=== PATIENT | male | born 1990 | race Caucasian/White ===

== ENCOUNTER 2019-08-04 13:49 | Emergency (ER) | payer OTHER, SELFPAY ==
--- NOTE | 2019-08-04 13:53 | ED_ITS ---
HPI - Abdominal Pain <Joyce Mcdaniels PA-C - Last Filed: 08/04/19 21:18> General Chief Complaint: Abdominal Pain Stated Complaint: abdominal pain Time Seen by Provider: 08/04/19 13:52 Source: patient Mode of arrival: Ambulatory Limitations: no limitations History of Present Illness HPI narrative: This is a 29-year-old well-appearing male with no pertinent medical history who presents with reported abdominal pain this morning and two similar episodes on the prior 2 mornings. He reports waking up around 5 or 6:00 a.m. 3 days ago with pain to his left flank that was achy and constant lasting about 30 minutes. When he is having the pain it radiates to the front left side of his abdomen as well. It is constant when it is occurring. He had the same thing again yesterday morning at the same time of day however it was slightly more intense. Yesterday it was associated with an urge to have a bowel movement and some cramping, however he tried and nothing happened. This morning it occurred again and he walked around without relief, attempted to use the restroom and then stretched and felt very nauseous. This morning's episode lasted for about an hour before his pain resolved. After the wave of the nausea passed he vomited clear emesis and went to sleep immediately afterwards as he felt better, but now presents to the emergency department with concern for this ongoing pain. He does say he has increased his physical activity recently including increasing yoga at home as well as increasing mountain biking, though he reports he does not remember doing anything specifically that might have strained this area of his body. He has been eating and drinking normally, he had a smoothie this morning for breakfast. He has had normal bowel movements 1- 2 times per day. No dysuria. His pain is currently a 0-1. During the episodes it goes u to a 5/10. He did not take anything to relieve the pain. He does not take any medications or supplements on a regular basis, he has no surgical history. He has never had pain like this before, and there is no personal or family history of kidney stones. MD complaint: abdominal pain and flank pain Onset (ago): day(s) (3) Pain Consistency: intermittent and now resolved Location: L flank Severity: mild Severity scale (1-10): 1 Quality: cramping, aching and dull Radiation: RUQ Migration to: no migration Relieving factors: vomiting Exacerbating factors: nothing Associated symptoms: nausea and vomiting Related Data Allergies Allergy/AdvReac Type Severity Reaction Status Date / Time No Known Drug Allergies Allergy Verified 08/04/19 15:03 Review of Systems <Joyce Mcdaniels PA-C - Last Filed: 08/04/19 21:18> Review of Systems ROS Unobtainable: All systems reviewed & are unremarkable except as noted in HPI and below Constitutional Constitutional: Reports as per HPI, Denies anorexia, Denies body ache(s), Denies fatigue, Denies poor appetite and Denies weakness ENT Ears, Nose, Mouth, and Throat: Denies dysphagia Cardiovascular Cardiovascular: Reports system reviewed and no additional complaints, except as docu Respiratory Respiratory: Reports system reviewed and no additional complaints, except as docu Gastrointestinal Gastrointestinal: Reports abdominal pain, Denies belching, Denies bloating, Denies change in bowel habits, Denies change in stool character, Denies constipation, Reports cramping, Denies dysphagia, Denies dyspepsia, Denies diarrhea, Denies loose stools, Reports nausea and Reports vomiting Genitourinary Genitourinary: Reports system reviewed and no additional complaints, except as docu and Reports as per HPI Musculoskeletal Musculoskeletal: Denies abnormal gait Neurologic Neurologic: Reports as per HPI, Denies abnormal gait and Denies weakness Psychiatric Psychiatric: Reports system reviewed and no additional complaints, except as docu Endocrine Endocrine: Denies fatigue Hematologic/Lymphatic Hematologic/Lymphatic: Reports system reviewed and no additional complaints, except as docu Allergic/Immunologic Allergic/Immunologic: Reports system reviewed and no additional complaints, except as docu Patient History <Joyce Mcdaniels PA-C - Last Filed: 08/04/19 21:18> Social History Smoking Status: Never smoker Exam <JELENA Shane Last Filed: 08/04/19 21:18> Initial Vital Signs Initial Vital Signs: Vital Signs Temperature 98.4 F 08/04/19 15:00 Pulse Rate 72 08/04/19 15:00 Respiratory Rate 16 08/04/19 15:00 Blood Pressure 140/82 08/04/19 15:00 Pulse Oximetry 98 08/04/19 15:00 Const General: cooperative, healthy appearing, comfortable, well developed and well groomed Nutritional Appearance: average body habitus Orientation: Orientation (x4) [facility] Head: normal to inspection, normocephalic and atraumatic Ears: hearing grossly normal bilaterally and external ears normal Nose: external nose normal Face and sinus: face symmetric Mouth: lip normal Teeth and gingiva: dentition normal Resp Effort & Inspection: normal respiratory effort, able to speak in complete sentences, no audible wheezes and no cough Auscultation: clear to auscultation bilaterally Cardio Rate: regular rate Rhythm: regular rhythm Heart Sounds: S1 normal and S2 normal Pulses: radial pulses present GI Inspection: normal to inspection, no abdominal wall ecchymosis, non-distended, no scars and no visible herniation Palpation: soft, No no hepatosplenomegaly, No firm, No guarding, No hernia and No mass Auscultation: normal bowel sounds Back/Spine/Pelvis Back: normal to inspection, No back tenderness, No CVA tenderness, No ecchymosis, No erythema, No sacral edema and No warmth Thoracic/Lumbar Spine: No thoracic and lumbar spine normal to inspection Other: Patient feels sensation of pressure is slightly different pressing on the left flank as compared to the right flank Skin General: no rashes or lesions noted, elasticity normal and turgor normal Lesions: no lesions Rashes: no rashes Trauma: no lacerations or abrasions Wounds: no wounds Hair: normal Nails: normal Other: multiple tattoos Neuro General: alert, awake, oriented x3, gait normal, moves all extremities and no focal motor deficits Speech: speech normal Gait: normal gait Sensory Exam: no sensory deficits noted Psych Appearance: grossly normal Mental Status: mental status grossly normal <Guerda Bullock DO - Last Filed: 08/05/19 07:14> Initial Vital Signs Initial Vital Signs: Vital Signs Temperature 98.4 F 08/04/19 15:00 Pulse Rate 72 08/04/19 15:00 Respiratory Rate 16 08/04/19 15:00 Blood Pressure 140/82 08/04/19 15:00 Pulse Oximetry 98 08/04/19 15:00 Course <Joyce Mcdaniels PA-C - Last Filed: 08/04/19 21:18> Orders Ordered: Discontinued Medications Ondansetron HCl (Zofran) 4 mg IV NOW ONE Stop: 08/04/19 14:10 Last Admin: 08/04/19 16:24 Dose: Not Given Documented by: BTONER Reevaluation(s) Reevaluation #1: He has leukocyte esterase present on urine sent to lab. Labs are otherwise unremarkable, glucose is slightly elevated to 113, EOS are 5.1. On re-evaluation he is still well appearing, passively range of motion of active spine and hips, he has no pain with this. Advises he has not had nausea since this morning with a single episode associated with intense pain that he describes as 7/10 at the time. Discussed the options moving forward, as well as lab results returned so far. He is in agreement that if it is not necessary today he would prefer not to have a CT scan at this point. Time: 15:51 Vital Signs Vital signs: Vital Signs - 8 hr 08/04/19 15:00 08/04/19 16:24 Temperature 98.4 F Pulse Rate 72 60 Respiratory Rate 16 16 Blood Pressure 140/82 124/73 Pulse Oximetry 98 99 <Guerda Bullock DO - Last Filed: 08/05/19 07:14> Orders Ordered: Discontinued Medications Ondansetron HCl (Zofran) 4 mg IV NOW ONE Stop: 08/04/19 14:10 Last Admin: 08/04/19 16:24 Dose: Not Given Documented by: BTONER Vital Signs Vital signs: Vital Signs - 8 hr 08/04/19 15:00 08/04/19 16:24 Temperature 98.4 F Pulse Rate 72 60 Respiratory Rate 16 16 Blood Pressure 140/82 124/73 Pulse Oximetry 98 99 MDM - Abdominal Pain <Joyce Mcdaniels PA-C - Last Filed: 08/04/19 21:18> Differential Diagnosis Differential diagnosis: Likely abdominal pain, acute appendicitis, calculus of kidney, constipation, diverticulitis, gastroenteritis and other Medical Records Attestation: I reviewed the patient's medical records. Medical records narrative: No medical records found Lab Data Result diagrams: 08/04/19 14:45 08/04/19 14:45 Labs: Lab Results 08/04/19 08/04/19 08/04/19 Range/Units 14:45 14:45 14:50 WBC 5.8 (4.5-11.0) X10^3/uL RBC 4.51 (4.5-5.9) X10^6/uL Hgb 14.6 (13.5-17.5) g/dL Hct 41.9 (41-53) % MCV 93.0 (80-100) fL MCH 32.4 (26-34) PG MCHC 34.8 (30-36) % RDW 12.7 (11.6-14.8) % Plt Count 177 (150-400) X10^3/uL Neut % (Auto) 61.4 (50-75) % Lymph % (Auto) 25.4 (25-40) % [place] % (Auto) 7.4 (3-14) % Eos % (Auto) 5.1 H (2-4) % Baso % (Auto) 0.7 (0-2) % Neut # (Auto) 3500 (1105-3845) /uL Lymph # (Auto) 1500 (3658-8590) /uL [place] # (Auto) 400 (0-900) /uL Eos # (Auto) 300 (0-450) /uL Baso # (Auto) 0 (0-100) /uL Sodium 137 (137-145) mmol/L Potassium 4.2 (3.4-5.1) mmol/L Chloride 101 (98-107) mmol/L Carbon Dioxide 31 (22-32) mmol/L BUN 15 (9-20) mg/dL Creatinine 0.78 (0.66-1.25) mg/dL Estimated GFR > 60.0 (>60) mL/min BUN/Creatinine Ratio 19.2 (6-22) Glucose 113 H (70-100) mg/dL Calcium 9.8 (8.4-10.2) mg/dL Total Bilirubin 0.5 (0.2-1.3) mg/dL AST 29 (17-59) IU/L ALT 17 (<50) IU/L Alkaline Phosphatase 58 (38-126) U/L Total Protein 7.8 (6.3-8.2) g/dL Albumin 4.6 (3.5-5.0) g/dL Globulin 3.2 (1.7-4.1) g/dL Albumin/Globulin Ratio 1.4 (1.0-2.8) Amylase 93 (30-110) U/L Lipase 156 (23-300) U/L Urine RBC None seen (0-5/HPF) Urine WBC 0-1/hpf (0-5/HPF) Ur Squamous Epith Cells 1-5 /hpf (0-5/HPF) Urine Bacteria Occasional (0-1) (None) Ur Culture Indicated? Specimen cultured Point of care testing: Urine Dip Bedside Urine Glucose Negative Bedside Urine Bilirubin - Negative Bedside Urine Ketone - Negative Urine Specific [place] 1.015 Bedside Urine Occult Blood - Negative Bedside Urine pH 6.5 Bedside Urine Protein - Negative Bedside Urine Urobilinogen - Negative Bedside Urine Nitrite - Negative Bedside Urine Leukocytes +/- 15 Esterase MDM Narrative Medical decision making narrative: This is a well-appearing 29-year-old male with no significant history, no surgical history who presents for 3 episodes abdominal/flank pain occurring in the mornings for the last 3 days. Based on exam and history I have very low suspicion for acute abdominal process such as an appendicitis or bowel obstruction. His pain is also somewhat atypical for kidney stones or ureterolithiasis, however this is more likely than other acute abdominal processes. His pain also could be musculoskeletal as he has increased his physical activity lately quite a bit. Diverticulitis is also a consideration, however difficult to determine as no scans done today given his benign exam and patient does not desire scans unless absolutely necessary. Based on urinalysis with microscopic have no suspicion for urinary tract infection at this time. Plan to discharge home with close PCP follow-up, return precautions provided. <Guerda Bullock, DO - Last Filed: 08/05/19 07:14> Lab Data Labs: Lab Results 08/04/19 08/04/19 08/04/19 Range/Units 14:45 14:45 14:50 WBC 5.8 (4.5-11.0) X10^3/uL RBC 4.51 (4.5-5.9) X10^6/uL Hgb 14.6 (13.5-17.5) g/dL Hct 41.9 (41-53) % MCV 93.0 (80-100) fL MCH 32.4 (26-34) PG MCHC 34.8 (30-36) % RDW 12.7 (11.6-14.8) % Plt Count 177 (150-400) X10^3/uL Neut % (Auto) 61.4 (50-75) % Lymph % (Auto) 25.4 (25-40) % [place] % (Auto) 7.4 (3-14) % Eos % (Auto) 5.1 H (2-4) % Baso % (Auto) 0.7 (0-2) % Neut # (Auto) 3500 (7299-8316) /uL Lymph # (Auto) 1500 (3215-7684) /uL [place] # (Auto) 400 (0-900) /uL Eos # (Auto) 300 (0-450) /uL Baso # (Auto) 0 (0-100) /uL Sodium 137 (137-145) mmol/L Potassium 4.2 (3.4-5.1) mmol/L Chloride 101 (98-107) mmol/L Carbon Dioxide 31 (22-32) mmol/L BUN 15 (9-20) mg/dL Creatinine 0.78 (0.66-1.25) mg/dL Estimated GFR > 60.0 (>60) mL/min BUN/Creatinine Ratio 19.2 (6-22) Glucose 113 H (70-100) mg/dL Calcium 9.8 (8.4-10.2) mg/dL Total Bilirubin 0.5 (0.2-1.3) mg/dL AST 29 (17-59) IU/L ALT 17 (<50) IU/L Alkaline Phosphatase 58 (38-126) U/L Total Protein 7.8 (6.3-8.2) g/dL Albumin 4.6 (3.5-5.0) g/dL Globulin 3.2 (1.7-4.1) g/dL Albumin/Globulin Ratio 1.4 (1.0-2.8) Amylase 93 (30-110) U/L Lipase 156 (23-300) U/L Urine RBC None seen (0-5/HPF) Urine WBC 0-1/hpf (0-5/HPF) Ur Squamous Epith Cells 1-5 /hpf (0-5/HPF) Urine Bacteria Occasional (0-1) (None) Ur Culture Indicated? Specimen cultured Point of care testing: Urine Dip Bedside Urine Glucose Negative Bedside Urine Bilirubin - Negative Bedside Urine Ketone - Negative Urine Specific [place] 1.015 Bedside Urine Occult Blood - Negative Bedside Urine pH 6.5 Bedside Urine Protein - Negative Bedside Urine Urobilinogen - Negative Bedside Urine Nitrite - Negative Bedside Urine Leukocytes +/- 15 Esterase Discharge Plan Departure Patient Disposition: Home Clinical Impression: Acute flank pain Discharge Date/Time: 08/04/19 16:30 Instructions: DI for Kidney Stones, DI for Abdominal Pain-Adult Activity Restrictions/Additional Instructions: Thank you for letting us be part of your care today. Based on your exam, history and labs, there is no evidence of an emergent or life threatening illness at this time, but please follow up with your doctor in 1-2 days is recommended nonetheless to continue to rule out serious underlying causes of your symptoms. Please call the office for an appointment. Please return to the Emergency Department for any worsening or persistent symptoms. A clear cause of your pain was not found. Is possible that your pain is musculoskeletal based on quality and the fact the increased activity recently. However if it changes in nature or continues to happen or becomes worse is very important to seek care to be re- evaluated. Based on our discussion, CT imaging was not pursued today as the risks do not outweigh the benefits in your case. I suspect that your episode of vomiting this morning was due to the intense pain you are having at that time. I recommend that you can continue to do stretches however he should probably cut down on your physical activity for a few days to see if that helps relieve your pain. Please take tylenol and ibuprofen (alternating) as needed for pain. Referrals: [facility] [Outside] - None (Refer for PCP--will need follow up for Ed visit, no PCP)
[2019-08-04 15:00] VITALS: BP 140/82; PULSE 72; RESP 16; TEMP 36.9; O2SAT 98; BMI 25.1
[2019-08-04 15:03] LABS: Add Manual Diff / Slide Review NO; Basophils Absolute Auto 0 /uL (0-100); Basophils Percent Auto 0.7 % (0-2); Eosinophils Absolute Auto 300 /uL (0-450); Eosinophils Percent Auto 5.1 % (2-4); Hematocrit 41.9 % (41-53); Hemoglobin 14.6 g/dL (13.5-17.5); Lymphocytes Absolute Auto 1500 /uL (1100-4500); Lymphocytes Percent Auto 25.4 % (25-40); Mean Corpuscular HGB Conc 34.8 % (30-36); Mean Corpuscular Hemoglobin 32.4 PG (26-34); Monocytes Absolute Auto 400 /uL (0-900); Monocytes Percent Auto 7.4 % (3-14); Neutrophils Absolute Auto 3500 /uL (1500-7000); Neutrophils Percent Auto 61.4 % (50-75); Platelet Count 177 X10^3/uL (150-400); Red Blood Cell Count 4.51 X10^6/uL (4.5-5.9); Red Cell Distribution Width 12.7 % (11.6-14.8); White Blood Cell Count 5.8 X10^3/uL (4.5-11.0)
[2019-08-04 15:15] LABS: Alanine Aminotransferase 17 IU/L (<50); Albumin 4.6 g/dL (3.5-5.0); Albumin Globulin Ratio 1.4 (1.0-2.8); Alkaline Phosphatase 58 U/L (38-126); Amylase 93 U/L (30-110); Aspartate Aminotransferase 29 IU/L (17-59); BUN Creatinine Ratio 19.2 (6-22); Bilirubin Total 0.5 mg/dL (0.2-1.3); Blood Urea Nitrogen 15 mg/dL (9-20); Calcium 9.8 mg/dL (8.4-10.2); Carbon Dioxide 31 mmol/L (22-32); Chloride 101 mmol/L (98-107); Estimated Glomerular Filt Rate > 60.0 mL/min (>60); Globulin 3.2 g/dL (1.7-4.1); Glucose 113 mg/dL (70-100); HEMOLYSIS < 15 (0-50); Lipase 156 U/L (23-300); Potassium 4.2 mmol/L (3.4-5.1); Sodium 137 mmol/L (137-145); Total Protein 7.8 g/dL (6.3-8.2)
[2019-08-04 15:31] LABS: RBC Urine None Seen (0-5/HPF)
[2019-08-04 15:41] LABS: Bacteria Urine Occasional (0-1); Culture Indicated Urine Specimen Cultured; Squamous Epithelial Cell Urine 1-5 /HPF (0-5/HPF); WBC Urine 0-1/HPF (0-5/HPF)
[2019-08-04 16:24] VITALS: BP 124/73; PULSE 60; RESP 16; O2SAT 99
== END 2019-08-04 16:30 | disposition home or self-care (01) ==
PROVIDERS: Nurse Practitioner Family; Emergency Provider Student in an Organized Health Care Education/Training Program
DX: R10.9 Unspecified abdominal pain (principal); R11.2 Nausea with vomiting, unspecified
CPT/HCPCS: 36415; 80053; 81003; 81015; 82150; 83690; 85025; 87086; 99283; 99284